=== PATIENT | male | born 1935 | race Caucasian/White ===

== ENCOUNTER 2020-05-06 13:57 | Inpatient (IN) | payer MEDICARE ==
[~2020-05-06] VITALS: Wt 94.3 kg
[2020-05-06] MEDS ORDERED: CELEXA10 MG PO (18:27)
[2020-05-06] MEDS ORDERED: AMIODARONE HYD200 MG PO (18:27)
[2020-05-06] MEDS ORDERED: DEPAKOTE SPRIN125 MG PO (18:29)
[2020-05-06] MEDS ORDERED: ELIQUIS5 M1 PO (18:31)
[2020-05-06] MEDS ORDERED: EPIPEN 2-P0.3 MG/0.3 IJ (18:32)
[2020-05-06] MEDS ORDERED: FLOMAX0.4 MG PO (18:33)
[2020-05-06] MEDS ORDERED: HUMALOG100 UNIT/1 SQ (18:36)
[2020-05-06] MEDS ORDERED: LANTUS SOL100 UNIT/1 SC (18:36)
[2020-05-06] MEDS ORDERED: LASIX20 MG PO (18:37)
[2020-05-06] MEDS ORDERED: LIPITOR40 MG PO (18:37)
[2020-05-06] MEDS ORDERED: LOPRESSOR25 MG PO (18:37)
[2020-05-06] MEDS ORDERED: DAILY VALUE1 EACH PO (18:38)
[2020-05-06] MEDS ORDERED: NAMENDA10 MG PO (18:39)
[2020-05-06] MEDS ORDERED: PEPCID20 MG PO (18:40)
[2020-05-06] MEDS ORDERED: WHITE PETROLATUM5 GM OU (18:41)
[2020-05-06] MEDS ORDERED: RISPERDAL0.5 MG PO (18:42)
[2020-05-06] MEDS ORDERED: RISPERIDONE1 MG PO (18:43)
[2020-05-06] MEDS ORDERED: SECURA PROTECTI50 GM T (18:44)
[2020-05-06] MEDS ORDERED: DULCOLAX STOOL100 M1 PO (18:45)
[2020-05-06] MEDS ORDERED: TYLENOL325 M2 PO (18:46)
[2020-05-06] MEDS ORDERED: TYLENOL325 M1 PO (18:46)
[2020-05-06] MEDS ORDERED: ALLOPURINOL100 MG PO (18:47)
[2020-05-07 02:01] VITALS: BP 113/73
[2020-05-07 03:18] VITALS: BP 113/73
[2020-05-07 06:31] LABS: BASO # 0.1 10*3/uL (0.0-0.1); EOS # 0.5 10*3/uL (0.0-0.4); EOS % 6.8 % (1.0-4.0); HEMATOCRIT 38.6 % (42.0-52.0); LYMPH # 1.8 10*3/uL (1.3-4.4); LYMPH % 25.8 % (27.0-41.0); MEAN CORPUSCULAR HGB 30.1 pg (27.0-31.0); MEAN CORPUSCULAR HGB CONC 31.3 g/dl (33.0-37.0); MEAN PLATELET VOLUME 9.5 fl (9.6-12.3); MONO # 0.8 10*3/uL (0.1-1.0); MONO % 11.8 % (3.0-9.0); NEUT # 3.8 10*3/uL (2.3-7.9); NEUT % 54.2 % (47.0-73.0); PLATELET COUNT AUTOMATED 207 10*3/uL (130-400); RED BLOOD COUNT 4.02 10*6/uL (4.50-5.90); RED CELL DISTRI WIDTH 13.8 % (0-14.5); WHITE BLOOD COUNT 6.9 10*3/uL (4.8-10.8)
[2020-05-07 06:55] LABS: ALBUMIN 2.6 gm/dl (3.1-4.5); BUN 7 mg/dl (7-24); CHLORIDE 107 mmol/L (98-107); CHOLESTEROL 123 mg/dL (<200); CREATININE 0.63 mg/dL (0.70-1.30); HDL CHOLESTEROL 54 mg/dl (40-60); LDL CHOLESTEROL 59 mg/dL (9-159); POTASSIUM 3.4 mmol/L (3.5-5.1); SGOT/AST 8 IU/L (3-35); SGPT/ALT 12 U/L (12-78); SODIUM 144 mmol/L (136-145); TOTAL PROTEIN 5.7 gm/dL (6.4-8.2); TRIGLYCERIDES 51 mg/dl (<150); VALPROIC ACID (DEPAKENE) 20.7 ug/ml (50-100); VLDL CHOLESTEROL 10 mg/dL (6-40)
[2020-05-07 07:01] LABS: ALKALINE PHOSPHATASE 73 U/L (45-117)
[2020-05-07 07:43] VITALS: BP 110/87
[2020-05-07 08:32] LABS: VITAMIN D, 25-HYDROXY 35.9 ng/mL (30-100)
[2020-05-07 18:12] LABS: BILIRUBIN NEGATIVE; BLOOD NEGATIVE (NEGATIVE); CLARITY CLEAR (CLEAR); COLOR YELLOW (YELLOW); GLUCOSE NEGATIVE; KETONE NEGATIVE; LEUKO ESTERASE NEGATIVE (NEGATIVE); NITRITE NEGATIVE (NEGATIVE)
[2020-05-07 18:17] LABS: BACTERIA TRACE; EPITHELIAL CELLS 0-2; RBC 0-2 rbc/hpf (0-2)
[2020-05-07 20:00] VITALS: BP 112/69
[2020-05-08 07:00] LABS: BUN 8 mg/dl (7-24); CHLORIDE 108 mmol/L (98-107); CREATININE 0.69 mg/dL (0.70-1.30); POTASSIUM 3.9 mmol/L (3.5-5.1); SODIUM 143 mmol/L (136-145)
[2020-05-08 07:48] VITALS: BP 133/70
[2020-05-08 19:04] VITALS: BP 108/56
[2020-05-09 07:40] VITALS: BP 111/66
[2020-05-09 20:00] VITALS: BP 120/80
[2020-05-10 07:31] VITALS: BP 125/76
[2020-05-10 19:29] VITALS: BP 111/65
[2020-05-11 08:00] VITALS: BP 118/80
[2020-05-11 19:25] VITALS: BP 110/53
[2020-05-12 07:44] VITALS: BP 143/81
[2020-05-12 20:01] VITALS: BP 125/73
[2020-05-13 06:54] VITALS: BP 133/80
[2020-05-13 20:00] VITALS: BP 123/78
[2020-05-14 07:50] VITALS: BP 119/73
[2020-05-14 19:35] VITALS: BP 118/70
[2020-05-15] VITALS (7 sets, daily range): BP systolic 100–128; BP diastolic 62–84
[2020-05-15 08:05] LABS: BASO # 0.1 10*3/uL (0.0-0.1); EOS # 0.4 10*3/uL (0.0-0.4); EOS % 4.8 % (1.0-4.0); HEMATOCRIT 43.5 % (42.0-52.0); LYMPH # 1.5 10*3/uL (1.3-4.4); LYMPH % 18.9 % (27.0-41.0); MEAN CELL VOLUME 92.6 fl (80.0-94.0); MEAN CORPUSCULAR HGB 29.8 pg (27.0-31.0); MEAN CORPUSCULAR HGB CONC 32.2 g/dl (33.0-37.0); MEAN PLATELET VOLUME 9.4 fl (9.6-12.3); MONO # 0.9 10*3/uL (0.1-1.0); MONO % 11.7 % (3.0-9.0); NEUT % 63.2 % (47.0-73.0); PLATELET COUNT AUTOMATED 241 10*3/uL (130-400); RED CELL DISTRI WIDTH 13.4 % (0-14.5); WHITE BLOOD COUNT 7.9 10*3/uL (4.8-10.8)
[2020-05-15 08:15] LABS: ALKALINE PHOSPHATASE 77 U/L (45-117); BUN 11 mg/dl (7-24); CHLORIDE 101 mmol/L (98-107); CREATININE 0.81 mg/dL (0.70-1.30); POTASSIUM 3.9 mmol/L (3.5-5.1); SGOT/AST 10 IU/L (3-35); SGPT/ALT 14 U/L (12-78); SODIUM 138 mmol/L (136-145); TOTAL PROTEIN 6.6 gm/dL (6.4-8.2)
[2020-05-15 11:05] LABS: BILIRUBIN NEGATIVE; BLOOD NEGATIVE (NEGATIVE); CLARITY CLEAR (CLEAR); COLOR YELLOW (YELLOW); GLUCOSE NEGATIVE; KETONE NEGATIVE; LEUKO ESTERASE NEGATIVE (NEGATIVE); NITRITE NEGATIVE (NEGATIVE)
[2020-05-15 11:19] LABS: EPITHELIAL CELLS 0-2; RBC 0-2 rbc/hpf (0-2); WBC 0-2 wbc/hpf (0-5)
[2020-05-16 08:01] VITALS: BP 124/84
[2020-05-16 19:56] VITALS: BP 113/70
[2020-05-17 07:54] VITALS: BP 136/80
[2020-05-17 20:00] VITALS: BP 108/78
[2020-05-18 07:50] VITALS: BP 118/82
[2020-05-18 19:32] VITALS: BP 127/76
[2020-05-19 07:47] VITALS: BP 128/71
[2020-05-19 20:00] VITALS: BP 111/72
[2020-05-20 08:00] VITALS: BP 95/69
[2020-05-20 20:00] VITALS: BP 117/73
[2020-05-21 07:20] VITALS: BP 104/67
[2020-05-21 20:00] VITALS: BP 140/80
[2020-05-22 08:00] VITALS: BP 106/67
[2020-05-22] MEDS ORDERED: RIVASTIGMINE1 EAC2 T (08:56)
[2020-05-22] MEDS ORDERED: MEMANTINE HCL10 MG PO (08:56)
[2020-05-22 10:03] VITALS: BP 132/78
[2020-05-22 20:00] VITALS: BP 109/65
[2020-05-23 07:50] VITALS: BP 136/86
[2020-05-23 19:41] VITALS: BP 123/72
[2020-05-24 07:41] VITALS: BP 118/84
[2020-05-24 19:37] VITALS: BP 112/64
[2020-05-25 07:53] VITALS: BP 122/73
== END 2020-05-25 14:48 | disposition other institution (70) | DRG 883 ==
LOC: 3N 13:57
PROVIDERS: Internal Medicine; Registered Nurse; ADMIT Psychiatry & Neurology Psychiatry; ATTEND Psychiatry & Neurology Psychiatry
DX: F63.81 Intermittent explosive disorder (principal); D68.69 Other thrombophilia; J96.10 Chronic respiratory failure, unspecified whether with hypoxia or hypercapnia; F02.81 Dementia in other diseases classified elsewhere, unspecified severity, with behavioral disturbance; I48.91 Unspecified atrial fibrillation; K21.9 Gastro-esophageal reflux disease without esophagitis; E11.9 Type 2 diabetes mellitus without complications; M10.9 Gout, unspecified; I50.9 Heart failure, unspecified; I11.0 Hypertensive heart disease with heart failure; G30.9 Alzheimer's disease, unspecified; F32.9 Major depressive disorder, single episode, unspecified; Z20.828 Contact with and (suspected) exposure to other viral communicable diseases; N40.0 Benign prostatic hyperplasia without lower urinary tract symptoms; R13.10 Dysphagia, unspecified; I10 Essential (primary) hypertension; Z88.8 Allergy status to other drugs, medicaments and biological substances; Z91.030 Bee allergy status